=== PATIENT | female | born 1970 | race Caucasian/White ===

== ENCOUNTER → 2017-06-22 | Outpatient (CLI) | payer MEDICARE ==
--- NOTE | 2017-06-22 09:31 | US ---
EXAMINATION TYPE: US carotid duplex BILAT DATE OF EXAM: 06/22/2017 COMPARISON: NONE CLINICAL HISTORY: R42 dizziness, R94.31 abnormal EKG. Dizziness, imbalance EXAM MEASUREMENTS: RIGHT: Peak Systolic Velocity (PSV) cm/sec ----- Right CCA: 76.5 ----- Right ICA: 100.5 ----- Right ECA: 110.6 ICA/CCA ratio: 1.3 RIGHT: End Diastole cm/sec ----- Right CCA: 22.2 ----- Right ICA: 47.4 ----- Right ECA: 19.7 LEFT: Peak Systolic Velocity (PSV) cm/sec ----- Left CCA: 100.9 ----- Left ICA: 91.9 ----- Left ECA: 115.2 ICA/CCA ratio: 0.9 LEFT: End Diastole cm/sec ----- Left CCA: 29.7 ----- Left ICA: 42.6 ----- Left ECA: 18.0 VERTEBRALS (direction of flow): Right Vertebral: Antegrade Left Vertebral: Antegrade Rhythm: Normal Minimal plaque bilateral bifurcations. NO evidence of increased velocities. NO evidence of significan t stenosis IMPRESSION: 1. Minimal plaque bilaterally with no significant hemodynamic stenosis by carotid Doppler ultrasound. Criteria for Assigning % of Stenosis / Diameter reduction (Estimation based on the indirect measurements of the internal carotid artery velocities (ICA PSV). 1. Normal (no stenosis)=ICA PSV < 125 cm/s: ratio < 2.0: ICA EDV<40 cm/s. 2. Less than 50% stenosis=ICA PSV < 125 cm/s: ratio < 2.0: ICA EDV<40 cm/s. 3. 50 to 69% stenosis=ICA PSV of 125 to 230 cm/s: ration 2.0 ? 4.0: ICA EDV 40-100 cm/s. 4. Greater than 70% stenosis to near occlusion= ICA PSV > 230 cm/s: ratio > 4.0: ICA EDV > 100 cm/s. 5. Near occlusion= ICA PSV velocities may be low or undetectable: variable ratio and ICA EDV. 6. Total occlusion=unable to detect flow.
--- NOTE | 2017-06-22 09:55 | CT ---
EXAMINATION TYPE: CT brain wo con DATE OF EXAM: 06/22/2017 COMPARISON: NONE HISTORY: Dizziness, Abnormal EKG CT DLP: 1116.00 mGycm. Automated Exposure Control for Dose Reduction was Utilized. TECHNIQUE: CT scan of the head is performed without contrast. FINDINGS: There is no acute intracranial hemorrhage, mass effect, or midline shift identified. The ventricles and sulci are within normal limits in size. The globes are intact and the visualized sin uses are clear. IMPRESSION: No acute intracranial hemorrhage, mass effect, or midline shift is seen.
--- NOTE | 2017-06-22 11:50 | ECHOF ---
Referral Reason:R42 dizziness, R94.31 abnormal EKG MEASUREMENTS -------- HEIGHT: 172.7 cm WEIGHT: 127.0 kg BP: 109/57 IVSd: 1.0 cm (0.6 - 1.1) LVIDd: 5.0 cm (3.9 - 5.3) LVPWd: 1.2 cm (0.6 - 1.1) IVSs: 1.7 cm LVIDs: 2.9 cm LVPWs: 2.1 cm LAESV Index (A-L): 22.68 ml/m Ao Diam: 3.2 cm (2.0 - 3.7) AV Cusp: 2.4 cm (1.5 - 2.6) LA Diam: 2.5 cm (2.7 - 3.8) MV EXCURSION: 18.395 mm (> 18.000) MV EF SLOPE: 179 mm/s (70 - 150) EPSS: 0.5 cm MV E Raphael: 0.90 m/s MV DecT: 226 ms MV A Raphael: 0.63 m/s MV E/A Ratio: 1.41 RAP: 5.00 mmHg RVSP: 28.25 mmHg FINDINGS -------- Sinus rhythm. This was a technically good study. The left ventricular size is normal. Left ventricular wall thickness is normal. Overall left vent ricular systolic function is normal with, an EF between 55 - 60 %. The right ventricle is normal in size and function. The left atrium is normal in size. The right atrium is normal in size. The aortic valve is trileaflet, and appears structurally normal. No aortic stenosis or regurgitation. Mild mitral regurgitation is present. Trace tricuspid regurgitation present. The right ventricular systolic pressure, as measured by Dopp ler, is 28.25mmHg. Pulmonic valve appears structurally normal. The aortic root size is normal. Normal inferior vena cava with normal inspiratory collapse consistent with estimated right atrial pre ssure of 5 mmHg. The pericardium is normal. CONCLUSIONS -------- 1. Sinus rhythm. 2. This was a technically good study. 3. The left ventricular size is normal. 4. Left ventricular wall thickness is normal. 5. Overall left ventricular systolic function is normal with, an EF between 55 - 60 %. 6. The right ventricle is normal in size and function. 7. The left atrium is normal in size. 8. The right atrium is normal in size. 9. The aortic valve is trileaflet, and appears structurally normal. No aortic stenosis or regurgitati on. 10. Mild mitral regurgitation is present. 11. Trace tricuspid regurgitation present. 12. The right ventricular systolic pressure, as measured by Doppler, is 28.25mmHg. 13. Pulmonic valve appears structurally normal. 14. The aortic root size is normal. 15. Normal inferior vena cava with normal inspiratory collapse consistent with estimated right atrial pressure of 5 mmHg. 16. The pericardium is normal. TRACTOR DRIVER TEAMSTER: Gina Rob RDCS
== END | disposition home or self-care (01) ==
LOC: RADCTMAIN 08:37
PROVIDERS: ATTEND Family Medicine
DX: I65.23 Occlusion and stenosis of bilateral carotid arteries (principal); R42 Dizziness and giddiness; I08.1 Rheumatic disorders of both mitral and tricuspid valves
CPT/HCPCS: 70450; 93306; 93880

== ENCOUNTER → 2022-12-07 | Outpatient (CLI) | payer MEDICARE | END | disposition home or self-care (01) | LOC: LABPAT 15:20 | PROVIDERS: ATTEND Orthopaedic Surgery | DX: Z01.812 Encounter for preprocedural laboratory examination (principal); M17.12 Unilateral primary osteoarthritis, left knee; Z22.322 Carrier or suspected carrier of Methicillin resistant Staphylococcus aureus | CPT/HCPCS: 87070 ==

== ENCOUNTER 2023-01-11 13:22 | Inpatient (IN) | payer MEDICARE ==
[2023-01-06 13:19] VITALS: BMI 39.5
--- NOTE | 2023-01-10 13:49 | HP ---
HISTORY AND PHYSICAL DATE OF ANTICIPATED SURGERY: 01/11/2023. HISTORY OF PRESENT ILLNESS: Zeny Neal is a 52-year-old patient who was seen with progressive left knee pain. We discussed options for treatment. She elected to proceed with left total knee arthroplasty. Consents obtained. Medical clearance was provided by Dr. Jimmy Olson. PAST MEDICAL HISTORY: Noncontributory. SURGICAL HISTORY: Cholecystectomy, hysterectomy, knee arthroscopy. DAILY MEDICATIONS: 1. Abilify. 2. Diclofenac. 3. Gabapentin. ALLERGIES: None. SOCIAL HISTORY: She denies tobacco use. PHYSICAL EVALUATION OF LEFT KNEE: Range of motion is degrees. Tenderness medial joint line. Crepitus, medial patellofemoral compartments with range of motion. Pain with patellofemoral compression. Ligaments stable. Hip rotation is without pain. Distal neurovascular exam is intact. RADIOGRAPHS: Left knee radiographs reveal severe osteoarthritic changes. IMPRESSION: Left knee osteoarthritis. PLAN: Left total knee arthroplasty. MMODL / IJN: [id number] /
[~2023-01-11 13:22] MED LIST: ACETAMINOPHEN TAB 500 MG TAB PO PRN; DEXAMETHASONE SOD PHOSPHATE 4 MG/ML 1 ML VIAL IV ONE; LACTATED RINGERS 1,000 ML IV SCH; LIDOCAINE 1% (10MG/ML) FOR IV START INTRADERMA PRN; MELOXICAM 7.5 MG TAB PO PRN; ONDANSETRON 4 MG/2 ML VIAL IVP PRN; TRANEXAMIC 1,000 MG/100ML-NACL 1,000 MG in SALINE 1 100ML.BAG IVPB PRN; droPERidol 5 MG/2 ML VIAL IVP ONE
[2023-01-11] MEDS ORDERED: MIDAZOLAM 2 MG/2 ML VIAL IVP ONE (14:04)
[2023-01-11] MEDS ORDERED: DEXAMETHASONE SOD PHOSPHATE 4 MG/ML 1 ML VIAL ONE (14:16)
[2023-01-11] MEDS ORDERED: MIDAZOLAM 2 MG/2 ML VIAL ONE (14:16)
[2023-01-11] MEDS ORDERED: PROPOFOL 10 MG/ML 20 ML VIAL IV ONE (14:16)
[2023-01-11] MEDS ORDERED: fentaNYL (PF) 50 MCG/ML 2 ML AMP ONE (14:16)
[2023-01-11] MEDS ORDERED: ROPIVACAINE 5 MG/ML 30 ML VIAL ONE (14:16)
[2023-01-11] MEDS ORDERED: ceFAZolin 1,000 MG in SODIUM CHLORIDE 0.9% 1,000 ML IRRIGATION ONE (14:46)
[2023-01-11] MEDS ORDERED: NALOXONE 0.4 MG/ML 1 ML VIAL IV PRN (16:11)
[2023-01-11] MEDS ORDERED: HYDROcodone/APAP 5-325MG 1 EACH TAB PO PRN (16:11)
[2023-01-11] MEDS ORDERED: ONDANSETRON 4 MG/2 ML VIAL IVP PRN (16:11)
[2023-01-11] MEDS ORDERED: HYDROmorphone 0.5 MG/0.5 ML SYRINGE IVP PRN ×2 (16:11)
--- NOTE | 2023-01-11 16:11 | P.OP ---
Date of Procedure: 01/11/23 Preoperative Diagnosis: Left knee osteoarthritis Postoperative Diagnosis: Left knee osteoarthritis Procedure(s) Performed: Left total knee arthroplasty Implants: 1. Depuy attune posterior stabilized size 4 left cemented femur 2. Depuy attune size 4 fixed bearing cemented tibial baseplate 3. Depuy attune size 4 fixed bearing posterior stabilized 18 mm polyethylene tibial insert 4. Depuy attune 32 mm all polyethylene cemented patella Anesthesia: regional (Adductor canal catheter, Ipack block), spinal Surgeon: Huey Mcduffie Meat Grinder #1: Robert Pierson Estimated Blood Loss (ml): 45 Pathology: none sent Condition: stable Disposition: PACU Indications for Procedure: 52 year-old patient seen with symptomatic left knee osteoarthritis. After treatment options were discussed, she elected to proceed with total knee arthroplasty. Operative Findings: See description of procedure Description of Procedure: Patient was taken to the operative suite after having an adductor canal catheter placed by the department of anesthesia. Patient underwent a spinal anesthetic by the department of anesthesia. Patient was given preoperative IV intake antibiotics and TXA. A well-padded tourniquet was placed about the left lower extremity. The lower extremity was then prepped and draped in the normal sterile orthopedic fashion. The extremity was elevated, a tourniquet was insufflated to 300. A standard anterior incision was made sharply through skin. Dissection was taken down through the subcutaneous soft tissues down to the extensor mechanism. A medial arthrotomy was performed, patella was everted and knee was flexed. There was advanced osteoarthritis noted. I introduced my distal intramedullary femoral drill. I then introduced the distal femoral cutting jig. Yovany HYDE secured the cutting jig with 2 pins. I held retractors in position while Yovany HYDE performed the distal femoral resection through the guide area we now removed her distal femoral cutting guide. We now placed our 4-in-1 femoral cutting block and positioned and it was secured with 2 pins by Yovany HYDE while I held the block in position. The distal femoral finishing was now completed. A proximal tibial cutting guide was positioned. I held the guide in the appropriate position with both hands well Yovany HYDE inserted stabilizing pins into the guide. Proximal tibial cut was made. We now placed a trial femoral component into position, along with an appropriate size tibial tray and insert. We now took the knee through range of motion and had hyperextension. Even with our minimal tibial cut we went all way to a size 16 polyethylene and we still noted some hyperextension. We now decided to proceed with a posterior stabilized knee. The notch cutting device was placed in position appropriate cut was made for a posterior stabilized knee. I now placed a trial for a posterior stabilized femur position. We now trialed a 18 mm posterior stabilized polyethylene insert and noted excellent stability at this point. The patella was everted and stabilized with 2 towel clips held by Yovany HYDE while I performed a flush with patellar quad tendon utilizing a fresh sawblade. We templated the patella, appropriate drill holes were made. An appropriate trial patella was positioned, knee was taken through full range of motion with the patella tracking very nicely. The trial patella was removed. Drill holes were made through the femoral component. All trial components were removed after marking off the appropriate rotation of the tibia. Retractors were now positioned along the proximal tibia. An appropriate keel punch was made with the appropriate size tibial guide by myself on Yovany HYDE assisted by holding retractors. At this point appropriate size implants were chosen and opened. The joint was irrigated copiously with pulse lavage mechanical irrigation. The wound was irrigated with pulse lavage mechanical irrigation. We mixed antibiotic methylmethacrylate. We placed the knee into flexion. We placed multiple retractors assisted by Yovany HYDE to expose the proximal tibia. Once the methyl methacrylate was ready, the tibial component was cemented into place removing any excess methylmethacrylate form by both myself and Yovany HYDE. The femoral component was cemented into place removing the removing any excess methylmethacrylate performed by both myself and Yovany HYDE. We then inserted the appropriate size polyethylene tibial insert. We made sure that it was locked into position. We took the knee into full extension, and then back in a flexion making sure we had removed any excess methylmethacrylate. The patellar component was then cemented down and secured with clamp. Excess methylmethacrylate removed. We kept the knee in full extension, patellar clamp in position until methylmethacrylate had hardened. Once it had hardened the patellar clamp was removed. The knee was taken through full range of motion. The patella tracked nicely. There was good soft tissue balancing. The tourniquet was now released. Additional hemostasis was achieved via electrocautery. A second gram of TXA was given. The wound again was irrigated with pulse lavage mechanical irrigation. The extensor mechanism was repaired with Ethibond suture. We checked the repair with range of motion and it was stable. The subcutaneous soft tissues were repaired with Vicryl in layers. The skin was approximated with pernio/Dermabond. Sterile dressings were applied followed by loose web roll and Zohaib bandage. The patient was transferred to a bed, and taken to recovery in stable and satisfactory condition. Yovany HYDE assisted with this complex procedure.
[2023-01-11] MEDS ORDERED: ROPIVACAINE 1,100 MG, SODIUM CHLORIDE 0.9% 500 ML 330 ML, EMPTY PAIN BALL 1 EACH MISCELLANE PRN ×2 (17:09)
[2023-01-11] MEDS: HYDROmorphone 0.5 MG/0.5 ML SYRINGE IVP PRN ×2 (17:15→17:21)
[2023-01-11] MEDS: LACTATED RINGERS 1,000 ML IV SCH ×2 (17:19→18:43)
--- NOTE | 2023-01-11 17:47 | XR ---
EXAMINATION TYPE: XR knee limited LT DATE OF EXAM: 01/11/2023 5:25 PM CLINICAL INDICATION:Female, 52 years old with history of Evaluation for Postop abnormality and alignm ent; H COMPARISON: 12/04/2022.. TECHNIQUE: XR knee limited LT; examined in Frontal, lateral projections. FINDINGS: Status post total knee arthroplasty changes with hardware in appropriate alignment and in tact. No evidence of fracture. Subcutaneous lucencies and lucencies within the joint consistent with surgical changes. IMPRESSION: Status post total knee arthroplasty changes with hardware intact and appropriate alignment. No fractu res identified.
[2023-01-11] MEDS: HYDROcodone/APAP 7.5-325MG 1 EACH TAB PO PRN (18:27)
[2023-01-11] MEDS: HYDROmorphone 1 MG/ML 1 ML SYRINGE IVP PRN ×2 (20:05→22:57)
[2023-01-11] MEDS: SENNOSIDES-DOCUSATE SODIUM 1 EACH TAB PO SCH (20:05)
--- NOTE | 2023-01-11 20:26 | P.ANPRN ---
Procedure Note - Anesthesia - Nerve Block Performed Left Adductor Canal Infusion Time Out Performed: Yes Date of Procedure: 01/11/23 Procedure Start Time: 13:59 Procedure Stop Time: 14:10 Location of Patient: PreOp Indication: Acute Post-Operative Pain, Requested by Surgeon Sedation Type: Sedate with meaningful contact maintained Preparation: Sterile Prep, Sterile Dressing Position: Supine Catheter: Indwelling Needle Types: Pajunk Needle Gauge: 21 Ultrasound used to visualize needle placement: Yes Ultrasound used to observe medication spread: Yes Blood Aspirated: No Pain Paresthesia on Injection Noted: No Resistance on Injection: Normal Image Stored and Saved: Yes Events: Uneventful and Well Tolerated (Ropivacaine 0.5% 20 mL plus dexamethasone 4 mg)
--- NOTE | 2023-01-11 20:28 | P.ANPRN ---
Procedure Note - Anesthesia - Nerve Block Performed Left iPack Single Time Out Performed: Yes Date of Procedure: 01/11/23 Procedure Start Time: 14:11 Procedure Stop Time: 14:13 Location of Patient: PreOp Indication: Acute Post-Operative Pain, Requested by Surgeon Sedation Type: Sedate with meaningful contact maintained Preparation: Sterile Prep Position: Supine Needle Types: Pajunk Needle Gauge: 21 Ultrasound used to visualize needle placement: Yes Ultrasound used to observe medication spread: Yes Blood Aspirated: No Pain Paresthesia on Injection Noted: No Resistance on Injection: Normal Image Stored and Saved: Yes Events: Uneventful and Well Tolerated (Ropivacaine 0.5% 20 mL plus dexamethasone 4 mg)
[2023-01-11] MEDS ORDERED: traMADol 50 MG TAB PO PRN (22:34)
[2023-01-11] MEDS: ceFAZolin 3 GM in SODIUM CHLORIDE 0.9% 100 ML IVPB SCH (22:57)
[2023-01-12] MEDS: ETODOLAC 400 MG TAB PO SCH ×3 (00:20→20:29)
[2023-01-12] MEDS: busPIRone HCl 5 MG TAB PO SCH ×2 (00:21→20:29)
[2023-01-12] MEDS: diphenhydrAMINE 25 MG CAP PO SCH ×2 (00:21→20:29)
[2023-01-12] MEDS: GABAPENTIN 400 MG CAP PO SCH ×4 (00:21→20:29)
[2023-01-12] MEDS: QUEtiapine 25 MG TAB PO SCH ×5 (00:21→20:29)
[2023-01-12] MEDS: HYDROcodone/APAP 7.5-325MG 1 EACH TAB PO PRN ×5 (00:25→23:09)
[2023-01-12] MEDS: HYDROmorphone 1 MG/ML 1 ML SYRINGE IVP PRN ×4 (03:05→15:47)
[2023-01-12] MEDS: ceFAZolin 3 GM in SODIUM CHLORIDE 0.9% 100 ML IVPB SCH (07:05)
--- NOTE | 2023-01-12 07:07 | P.PN ---
Progress Note - Text 01/12/23 633am 60-year-old female status post total knee replacement by Dr. Mcduffie. Patient has an On-Q pump for postop pain control with the solution running at 8 mL an hour, patient has a VAS of 5. Pain is predominantly located in the thigh and posteriorly. Dressing clean dry and intact plan to continue On-Q pump infusion
[2023-01-12] MEDS: POTASSIUM CHLORIDE ER 20 MEQ TAB.ER PO SCH (08:14)
[2023-01-12] MEDS: MULTIVITAMINS, THERA 1 EACH TAB PO SCH (08:14)
[2023-01-12] MEDS: MAGNESIUM OXIDE 400 MG TAB PO SCH (08:15)
[2023-01-12] MEDS: ENOXAPARIN 30 MG/0.3 ML SYRINGE SQ SCH ×2 (08:15→20:30)
[2023-01-12] MEDS: BENZTROPINE MESYLATE 1 MG TAB PO SCH (08:16)
[2023-01-12] MEDS: NON FORMULARY DRUG (Vilazodone Hcl [Viibryd] 40 MG Tablet) PO SCH (08:17)
[2023-01-12] MEDS ORDERED: NON FORMULARY DRUG (Biotin [Hair-Skin-Nails] 10,000 MCG Tab.Chew) PO SCH (09:00)
--- NOTE | 2023-01-12 10:56 | P.PN ---
Subjective Progress Note Date: 01/12/23 Principal diagnosis: status post left total knee arthroplasty Patient was evaluated at bedside, she is resting in her hospital bed. Patient is struggling a little bit pain control, she was unable to do stairs with therapy today. She denies any lightheadedness, chest pain or shortness of breath. She's been urinating with no difficulties. Objective - Vital Signs Vital signs: Vital Signs Temp 99.1 F 01/12/23 07:03 Pulse 84 01/12/23 07:03 Resp 14 01/12/23 07:03 BP 136/84 01/12/23 07:03 Pulse Ox 94 L 01/12/23 07:03 FiO2 Intake & Output 01/11/23 01/12/23 01/12/23 18:59 06:59 18:59 Intake Total 1631 Output Total 45 Balance 1586 Weight 121.2 kg Intake: IV 1151 Oral 480 Output: Estimated Blood Loss 45 Other: # Voids 0 4 - Exam Left lower extremity: Incision is clean, dry, and intact. The foam dressing is in good condition. There is minimal soft tissue swelling and ecchymosis surrounding the medial and lateral aspects of the incision. Calf is soft, no tenderness with palpation. Plantar flexion, dorsiflexion, EHL, FHL are intact. Sensory exam to light touch throughout the extremity is intact, dorsal pedis pulses 2+. Assessment and Plan Assessment: Status post left total knee arthroplasty Plan: Pain control, continue with [place] 7.5 mg/325 mg, Dilaudid for breakthrough pain DVT prophylaxis, continue subcu medication during hospital stay Icing and elevating techniques were discussed Continue therapy, weight-bear as tolerated with walker Medical recommendations Current incentive spirometer Discharge planning: Hopeful discharge home with home health care 01/13/2023 Time with Patient: Less than 30
[2023-01-12] MEDS: LACTATED RINGERS 1,000 ML IV SCH ×2 (11:36→20:30)
--- NOTE | 2023-01-12 14:33 | P.CONS ---
History of Present Illness - Reason for Consult Consult date: 01/12/23 Medical management Requesting physician: Huey Mcduffie - Chief Complaint Left knee Osteoarthritis status post total arthroplasty - History of Present Illness This is a 52-year-old female status post left total knee arthroplasty secondary to left knee osteoarthritis in a patient with past medical history significant for fibromyalgia, osteoarthritis, Bo-en-Y, morbid obesity, multiple joint surgeries, anxiety, depression, marijuana use and multiple other medical issues. Postop day #1. Has not yet ambulated, complains of pain in a patient with history of chronic pain syndrome. Denies chest pain, palpitations or shortness of breath. Past Medical History Past Medical History: Fibromyalgia, Osteoarthritis (OA) History of Any Multi-Drug Resistant Organisms: None Reported Past Surgical History: Bariatric Surgery, Cholecystectomy, Hysterectomy, Joint Replacement, Orthopedic Surgery Additional Past Surgical History / Comment(s): Right knee surgery X2, right knee replacement, surgery X3 after gallbladder surgery to "fix stuff", including surgery to remove scar tissue over common bile duct and liver/intestinal surgery, Bo En Y, left TKR Past Anesthesia/Blood Transfusion Reactions: No Reported Reaction Past Psychological History: Anxiety, Depression Smoking Status: Never smoker Past Alcohol Use History: None Reported Past Drug Use History: Marijuana Additional Drug Use History / Comment(s): Hx Marijuana use, no use in 3-4 months. - Past Family History Mother Family Medical History: No Reported History Medications and Allergies Home Medications Medication Instructions Recorded Confirmed Type ARIPiprazole [Abilify] 20 mg PO QAM 01/06/23 01/06/23 History Benztropine Mesylate [Cogentin] 1 mg PO DAILY 01/06/23 01/06/23 History Biotin [Krcq-Vcgo-Kvoxd] 10,000 mcg PO DAILY 01/06/23 01/06/23 History Diclofenac Sodium [Voltaren] 75 mg PO BID 01/06/23 01/06/23 History Ergocalciferol [Vitamin D2 (1250 1,250 mcg PO TH 01/06/23 01/06/23 History Mcg = 40232 Iu)] Gabapentin 800 mg PO TID 01/06/23 01/06/23 History Magnesium 250 mg PO DAILY 01/06/23 01/06/23 History Multivitamins, Thera [Multivitamin 1 tab PO DAILY 01/06/23 01/06/23 History (formulary)] Potassium Chloride [K-Tab ER] 20 meq PO DAILY 01/06/23 01/06/23 History QUEtiapine FUMARATE [SEROquel] 75 mg PO HS 01/06/23 01/06/23 History QUEtiapine XR [SEROquel XR] 150 mg PO HS 01/06/23 01/06/23 History Turmeric Root Extract [Turmeric] 1,000 mg PO DAILY 01/06/23 01/06/23 History Vilazodone HCl [Viibryd] 40 mg PO QAM 01/06/23 01/06/23 History busPIRone HCl [Buspar] 5 mg PO HS 01/06/23 01/06/23 History diphenhydrAMINE HCL [Benadryl 75 mg PO HS 01/06/23 01/06/23 History Allergy] traMADol HCL 50 mg PO DAILY PRN 01/06/23 01/06/23 History Allergies Allergy/AdvReac Type Severity Reaction Status Date / Time No Known Allergies Allergy Verified 01/11/23 13:36 Physical Exam Vitals: Vital Signs Temp Pulse Pulse Resp BP Pulse Ox 01/12/23 07:03 99.1 F 84 14 136/84 94 L 01/12/23 02:00 99.4 F 76 18 164/91 94 L 01/11/23 20:00 98.5 F 77 18 147/89 94 L 01/11/23 17:32 67 16 126/77 94 L 01/11/23 17:17 70 16 131/58 96 01/11/23 17:02 67 14 125/51 97 01/11/23 16:47 61 14 103/66 96 01/11/23 16:32 70 14 108/52 97 Intake and Output 01/11/23 01/12/23 01/12/23 22:59 06:59 14:59 Intake Total 880 Output Total 45 Balance 835 Intake: IV 400 Oral 480 Output: Estimated Blood Loss 45 Other: # Voids 0 4 Weight 121.2 kg PHYSICAL EXAM: VITAL SIGNS: As above GENERAL: Sitting up in bed, no acute distress HEENT: Conjunctivae normal. eyes normal. mmm. NECK: Supple, No JVD. No thyroid enlargement. No LNs CARDIOVASCULAR: S1, S2 regular. No murmur RESPIRATION: Unlabored, Breath sounds diminished in the bases. No rhonchi or crackles. No bronchial breathing. ABDOMEN: Soft, nontender . No guarding. no masses palpable. No ascites, No hepatosplenomegaly.Bowel sounds heard. LEGS: Left lower extremity dressing clean dry and intact, minimal ecchymosis, minimal edema. No calf tenderness. Positive DP pulse PSYCHIATRY: Alert and oriented X3, mood and affect normal. NERVOUS SYSTEM: Cranial N 2-12 grossly normal. Moves all 4 limbs. No focal de ficits. Strength and sensation grossly intact.. Skin: Warm and dry, no rash Assessment and Plan Assessment: Osteoarthritis left knee status post total arthroplasty Morbid obesity, BMI 41 Multiple joint surgeries Fibromyalgia Anxiety Depression Marijuana use Plan: Continue on current medication regime ,monitoring and symptomatic treatment. Aggressive pulmonary toileting with incentive spirometer reinforce. PT pending. Pain management/DVT prophylaxis as per primary. Discharge planning in progress for tomorrow. Follow-up with PCP in one week .Thank you for the consult. The impression and plan of care has been dictated as directed. : I performed a history and examination of this patient, discussed the same with the dictator. I agree with the dictator's note ,documented as a scribe. Any additional findings or plans will be noted.
[2023-01-12] MEDS: hydrOXYzine pamoate 25 MG CAP PO PRN ×2 (17:36→23:12)
[2023-01-12] MEDS: SENNOSIDES-DOCUSATE SODIUM 1 EACH TAB PO SCH (20:29)
[2023-01-13] MEDS: HYDROcodone/APAP 7.5-325MG 1 EACH TAB PO PRN (05:22)
[2023-01-13] MEDS: hydrOXYzine pamoate 25 MG CAP PO PRN ×3 (05:22→18:32)
[2023-01-13] MEDS: NON FORMULARY DRUG (Vilazodone Hcl [Viibryd] 40 MG Tablet) PO SCH (07:26)
[2023-01-13] MEDS: ENOXAPARIN 30 MG/0.3 ML SYRINGE SQ SCH ×2 (07:46→20:05)
[2023-01-13] MEDS: GABAPENTIN 400 MG CAP PO SCH ×3 (07:47→20:05)
[2023-01-13] MEDS: BENZTROPINE MESYLATE 1 MG TAB PO SCH (07:47)
[2023-01-13] MEDS: ETODOLAC 400 MG TAB PO SCH ×2 (07:47→20:04)
[2023-01-13] MEDS: MULTIVITAMINS, THERA 1 EACH TAB PO SCH (07:47)
[2023-01-13] MEDS: MAGNESIUM OXIDE 400 MG TAB PO SCH (07:47)
[2023-01-13] MEDS: POTASSIUM CHLORIDE ER 20 MEQ TAB.ER PO SCH (07:48)
[2023-01-13] MEDS: QUEtiapine 25 MG TAB PO SCH ×3 (07:48→20:04)
--- NOTE | 2023-01-13 10:08 | P.PN ---
Subjective Progress Note Date: 01/13/23 Principal diagnosis: status post left total knee arthroplasty Patient was evaluated at bedside, she is resting in her hospital chair. Patient continues to have a lot of discomfort when ambulating oral medications were adjusted to 2 [place] 7.5 mg every 6 hours as needed. Patient is very nervous about discharge options, internal medicine to discuss possibility of rehab with her. She denies any lightheadedness, chest pain or shortness of breath. Objective - Vital Signs Vital signs: Vital Signs Temp 98.0 F 01/13/23 07:12 Pulse 82 01/13/23 07:12 Resp 18 01/13/23 07:12 BP 143/82 01/13/23 07:12 Pulse Ox 97 01/13/23 07:12 FiO2 Intake & Output 01/12/23 01/13/23 01/13/23 18:59 06:59 18:59 Intake Total 500 Balance 500 Intake: Oral 500 Other: Voiding Method Toilet # Voids 2 2 - Exam Left lower extremity: Incision is clean, dry, and intact. The foam dressing is in good condition. There is minimal soft tissue swelling and ecchymosis surrounding the medial and lateral aspects of the incision. Calf is soft, no tenderness with palpation. Plantar flexion, dorsiflexion, EHL, FHL are intact. Sensory exam to light touch throughout the extremity is intact, dorsal pedis pulses 2+. Assessment and Plan Assessment: Postoperative day #2 status post left total knee arthroplasty Plan: Pain control, will adjust [place] 10 mg 1 tab every 4 hours as needed. Continue with both tramadol and gabapentin DVT prophylaxis, continue subcu medication during hospital stay Icing and elevating techniques were discussed Continue therapy, weight-bear as tolerated with walker Medical recommendations Current incentive spirometer Discharge planning: Hopeful discharge to home with home health care 01/14/2023 Time with Patient: Less than 30
[2023-01-13] MEDS: HYDROcodone/APAP 10-325MG 1 EACH TAB PO PRN ×3 (10:30→18:32)
--- NOTE | 2023-01-13 13:51 | P.PN ---
Subjective Progress Note Date: 01/13/23 Consult date: 01/12/23 Medical management Requesting physician: Huey Mcduffie - Chief Complaint Left knee Osteoarthritis status post total arthroplasty - History of Present Illness This is a 52-year-old female status post left total knee arthroplasty secondary to left knee osteoarthritis in a patient with past medical history significant for fibromyalgia, osteoarthritis, Bo-en-Y, morbid obesity, multiple joint surgeries, anxiety, depression, marijuana use and multiple other medical issues. Postop day #1. Has not yet ambulated, complains of pain in a patient with history of chronic pain syndrome. Denies chest pain, palpitations or shortness of breath. 01/13/2023 reports she continues to have significant surgical discomfort, unable to ambulate far, was unable to complete stairs.Denies lightheadedness dizziness or focal deficits. Denies chest pain, palpitations or shortness of breath. Denies cough, congestion. Denies sweats or chills. Maintaining O2 sats in the high 90s on room air. T-max 99.1. Objective - Vital Signs Vital signs: Vital Signs Temp 98.0 F 01/13/23 07:12 Pulse 82 01/13/23 09:00 Resp 18 01/13/23 09:00 BP 143/82 01/13/23 07:12 Pulse Ox 97 01/13/23 07:12 FiO2 Intake & Output 01/12/23 01/13/23 01/13/23 18:59 06:59 18:59 Intake Total 500 Balance 500 Intake: Oral 500 Other: Voiding Method Toilet Toilet # Voids 2 2 - Exam PHYSICAL EXAM: VITAL SIGNS: As above GENERAL: Sitting up in bed, no acute distress, teary-eyed HEENT: Normocephalic. Conjunctivae normal. eyes normal. mmm. NECK: Supple, No JVD. CARDIOVASCULAR: S1, S2 regular. No murmur RESPIRATION: Unlabored, equal air entry, Breath sounds diminished in the bases. ABDOMEN: Soft, obese, nontender . No guarding. +Bowel sounds. LEGS: Left lower extremity dressing clean dry and intact, minimal ecchymosis, minimal edema. No calf tenderness. Positive DP pulse PSYCHIATRY: Alert and oriented X3, mood and affect normal. NERVOUS SYSTEM: Cranial N 2-12 grossly normal. Moves all 4 limbs. No focal deficits. Strength and sensation grossly intact. Skin: Warm and dry, no rash Assessment and Plan Assessment: Osteoarthritis left knee status post total arthroplasty Morbid obesity, BMI 41 Multiple joint surgeries Fibromyalgia Anxiety Depression Marijuana use Plan: Continue on current medication regime ,monitoring and symptomatic treatment. Pain management. Discussed possibility of subacute rehab. dependent upon PT eval. Maintain aggressive pulmonary toileting with incentive spirometer reinforced.Discharge planning in progress for tomorrow. Follow-up with PCP in one week . The impression and plan of care has been dictated as directed. : I performed a history and examination of this patient, discussed the same with the dictator. I agree with the dictator's note ,documented as a scribe. Any additional findings or plans will be noted.
[2023-01-13] MEDS: LACTATED RINGERS 1,000 ML IV SCH (19:17)
[2023-01-13] MEDS: busPIRone HCl 5 MG TAB PO SCH (20:04)
[2023-01-13] MEDS: SENNOSIDES-DOCUSATE SODIUM 1 EACH TAB PO SCH (20:05)
[2023-01-13] MEDS: diphenhydrAMINE 25 MG CAP PO SCH (20:05)
[2023-01-14] MEDS: HYDROcodone/APAP 10-325MG 1 EACH TAB PO PRN ×3 (00:51→10:54)
[2023-01-14] MEDS: hydrOXYzine pamoate 25 MG CAP PO PRN ×2 (00:52→10:55)
[2023-01-14 01:23] VITALS: TEMP 98.8
[2023-01-14] MEDS: LACTATED RINGERS 1,000 ML IV SCH (01:46)
[2023-01-14] MEDS: ENOXAPARIN 30 MG/0.3 ML SYRINGE SQ SCH (07:21)
[2023-01-14] MEDS: POTASSIUM CHLORIDE ER 20 MEQ TAB.ER PO SCH (07:22)
[2023-01-14] MEDS: MAGNESIUM OXIDE 400 MG TAB PO SCH (07:22)
[2023-01-14] MEDS: MULTIVITAMINS, THERA 1 EACH TAB PO SCH (07:22)
[2023-01-14] MEDS: GABAPENTIN 400 MG CAP PO SCH (07:22)
[2023-01-14] MEDS: QUEtiapine 25 MG TAB PO SCH (07:23)
[2023-01-14] MEDS: BENZTROPINE MESYLATE 1 MG TAB PO SCH (07:23)
[2023-01-14] MEDS: ETODOLAC 400 MG TAB PO SCH (07:24)
[2023-01-14] MEDS: NON FORMULARY DRUG (Vilazodone Hcl [Viibryd] 40 MG Tablet) PO SCH (07:25)
[2023-01-14 07:53] VITALS: BP 136/91; PULSE 90; RESP 21
[2023-01-14] MEDS ORDERED: ERGOCALCIFEROL 1,250 MCG (50,000 IU) CAPSULE PO SCH (09:00)
--- NOTE | 2023-01-14 09:39 | P.PN ---
Subjective Progress Note Date: 01/14/23 Principal diagnosis: status post left total knee arthroplasty Patient was evaluated at bedside, she is resting in her hospital bed . Patient notes improvement in overall pain since increasing Hudson. She denies any lightheadedness, chest pain or shortness of breath. Objective - Vital Signs Vital signs: Vital Signs Temp 98.8 F 01/14/23 07:15 Pulse 90 01/14/23 08:00 Resp 21 01/14/23 08:00 BP 136/91 01/14/23 07:15 Pulse Ox 99 01/14/23 07:15 FiO2 Intake & Output 01/13/23 01/14/23 01/14/23 18:59 06:59 18:59 Other: Voiding Method Toilet Toilet # Voids 4 3 - Exam Left lower extremity: Incision is clean, dry, and intact. The foam dressing is in good condition. There is minimal soft tissue swelling and ecchymosis surrounding the medial and lateral aspects of the incision. Calf is soft, no tenderness with palpation. Plantar flexion, dorsiflexion, EHL, FHL are intact. Sensory exam to light touch throughout the extremity is intact, dorsal pedis pulses 2+. Assessment and Plan Assessment: Postoperative day #3 status post left total knee arthroplasty Plan: Pain control, plan for discharge on Hudson 10 mg/25 mg DVT prophylaxis, aspirin 81 mg twice a day for 30 days Icing and elevating techniques were discussed Home physical therapy/nursing after discharge Medical recommendations Current incentive spirometer Discharge planning: stable for discharge home today Time with Patient: Less than 30
--- NOTE | 2023-01-14 09:45 | P.DS ---
Providers Date of admission: 01/13/23 10:08 Expected date of discharge: 01/14/23 Attending physician: Huey Mcduffie Consults: 01/11/23 16:11 Consult Physician Routine Consulting Provider: Jimmy Olson Consult Reason/Comments: Medical management Do you want consulting provider notified?: Yes Primary care physician: Jimmy Olson MD Hospital Course: Date of admission: 01/11/2023 Date of discharge: 01/14/2023 Admission diagnosis: Status post left total knee arthroplasty Discharge diagnosis: Same Attending physician: Dr. Mcduffie Surgical procedures: Left total knee arthroplasty Brief history: Patient is a 52-year-old female with a history of progressive primary left knee osteoarthritis. At this point patient has failed conservative treatment measures and has opted to proceed with a elective left total knee arthroplasty. Hospital course: Details of patient's surgery can be found in operative report. Patient tolerated the procedure well and was subsequently transported to orthopedic floor. Patient's orthopeidc and medical care was provided daily. Patient had daily laboratory tests performed for evaluation of overall blood counts. Patient had daily physical therapy to include strengthening range of motion as well as education with walker ambulation. Patient was treated with Lovenox for their postoperative DVT prophylaxis during their inpatient stay. Patient was noted to have a relatively uneventful postoperative course. Patient reported satisfactory pain control with oral pain medications by postoperative day 3. Patient showed satisfactory progress with physical therapy. Patient moved steadily through the program and had no difficulty meeting the goals by postoperative day 3. Given patient's otherwise satisfactory course and having met physical therapy goals, plan is to discharge patient home on postoperative day 3. Discharge condition/disposition: Patient will be discharged home in stable condition. Discharge medications: Instructions are given on resumption of patient's normal daily medications per primary care recommendation, in addition patient will be prescribed [place] 10 mg/325 mg, aspirin 81 mg, Senokot-S. Discharge instructions: 1. Wound care and infection precautions, keep incision dry and covered while showering, no lotions, creams, moisturizers. No soaking, tubs, pools, hottubs. Do not scrub over the incision. 2. Weight-bear as tolerated with walker / cane until follow-up. 3. Ice and elevate when necessary. Do not exceed 20 minutes per hour with ice pack. 4. Utilize compression sleeve until seen at first follow up appointment. 5. Visiting nursing care. 6. Home physical therapy including home CPM. 7. Pain meds and anticoagulants per prescription. 8. Pain medication has potential to cause constipation. Increase oral fluid and fiber intake. Contact primary care provider if you have not had a bowel movement within 48 hours after discharge 9. No anti-inflammatory medication until discussed at first post operative visit, this including Motrin, Aleve, Mobic, Diclofenac 10. Follow up in office at 2 weeks postop with Yovany Pierson PA-C/Camilo Barrow 11. Follow up with your primary care doctor 7-10 days after discharge. 12. Contact [facility] with any questions, . Procedures: Left total knee arthroplasty Patient Condition at Discharge: Good Plan - Discharge Summary Discharge Rx Participant: Yes New Discharge Prescriptions: New HYDROcodone/APAP 10-325MG [[place] 10-325] 1 tab PO Q4HR PRN 7 Days #42 tab PRN Reason: Pain Aspirin [Adult Low Dose Aspirin EC] 81 mg PO BID #60 tab Sennosides/Docusate Sodium [Senna-S 8.6-50 mg Tablet] 2 each PO DAILY PRN #30 tablet PRN Reason: Constipation No Action Multivitamins, Thera [Multivitamin (formulary)] 1 tab PO DAILY busPIRone HCl [Buspar] 5 mg PO HS Ergocalciferol [Vitamin D2 (1250 Mcg = 87774 Iu)] 1,250 mcg PO TH QUEtiapine FUMARATE [SEROquel] 75 mg PO HS Biotin [Ojhp-Gabw-Spcwd] 10,000 mcg PO DAILY QUEtiapine XR [SEROquel XR] 150 mg PO HS Vilazodone HCl [Viibryd] 40 mg PO QAM Gabapentin 800 mg PO TID Diclofenac Sodium [Voltaren] 75 mg PO BID ARIPiprazole [Abilify] 20 mg PO QAM Benztropine Mesylate [Cogentin] 1 mg PO DAILY diphenhydrAMINE HCL [Benadryl Allergy] 75 mg PO HS Turmeric Root Extract [Turmeric] 1,000 mg PO DAILY Potassium Chloride [K-Tab ER] 20 meq PO DAILY Magnesium 250 mg PO DAILY traMADol HCL 50 mg PO DAILY PRN PRN Reason: Pain Discharge Medication List ARIPiprazole [Abilify] 20 mg PO QAM 01/06/23 [History] Benztropine Mesylate [Cogentin] 1 mg PO DAILY 01/06/23 [History] Biotin [Orbo-Oovn-Yvgis] 10,000 mcg PO DAILY 01/06/23 [History] Diclofenac Sodium [Voltaren] 75 mg PO BID 01/06/23 [History] Ergocalciferol [Vitamin D2 (1250 Mcg = 97388 Iu)] 1,250 mcg PO TH 01/06/23 [History] Gabapentin 800 mg PO TID 01/06/23 [History] Magnesium 250 mg PO DAILY 01/06/23 [History] Multivitamins, Thera [Multivitamin (formulary)] 1 tab PO DAILY 01/06/23 [H istory] Potassium Chloride [K-Tab ER] 20 meq PO DAILY 01/06/23 [History] QUEtiapine FUMARATE [SEROquel] 75 mg PO HS 01/06/23 [History] QUEtiapine XR [SEROquel XR] 150 mg PO HS 01/06/23 [History] Turmeric Root Extract [Turmeric] 1,000 mg PO DAILY 01/06/23 [History] Vilazodone HCl [Viibryd] 40 mg PO QAM 01/06/23 [History] busPIRone HCl [Buspar] 5 mg PO HS 01/06/23 [History] diphenhydrAMINE HCL [Benadryl Allergy] 75 mg PO HS 01/06/23 [History] traMADol HCL 50 mg PO DAILY PRN 01/06/23 [History] Aspirin [Adult Low Dose Aspirin EC] 81 mg PO BID #60 tab 01/14/23 [Rx] HYDROcodone/APAP 10-325MG [[place] 10-325] 1 tab PO Q4HR PRN 7 Days #42 tab 01/14/23 [Rx] Sennosides/Docusate Sodium [Senna-S 8.6-50 mg Tablet] 2 each PO DAILY PRN #30 tablet 01/14/23 [Rx] Follow up Appointment(s)/Referral(s): Jimmy Olson MD [Primary Care Provider] - 1 Week [facility],Equipment [NON-STAFF] - As Needed (Please call [facility] to arrange delivery of the Continous Passive Motion (CPM) machine. ) [facility] Visiting Nurse, [NON-STAFF] - 1-2 Days ([facility] will call you to schedule your in home physical therapy and nursing visits. ) Robert Pierson, PAC [PHYSICIAN FERTILIZER MIXER] - 2 Weeks Activity/Diet/Wound Care/Special Instructions: Orthopedic Discharge Instructions: 1. Wound care and infection precautions, keep incision dry and covered while showering, no lotions, creams, moisturizers. No soaking, pools, hot tubs. Do not scrub over incision. 2. Weight-bear as tolerated with walker / cane until follow-up. 3. Ice and elevate when necessary. Do not exceed 20 minutes per hour with ice pack. 4. Utilize compression sleeve until seen at first follow up appointment. 5. Pain meds and anticoagulants per prescription. 6. Pain medication has potential to cause constipation. Increase oral fluid and fiber intake. Contact primary care provider if you have not had a bowel movement within 48 hours after discharge. 7. No anti-inflammatory medication until discussed at first post operative visit, this including Motrin, Aleve, Mobic, Diclofenac. 8. Follow up in office at 2 weeks postop with Yovany Pierson PA-C/Camilo Gomez PA-C 9. Follow up with your primary care doctor 7-10 days after discharge. 10. Contact [facility] with any questions, . Wound care instructions: 1. Okay to remove surgical dressing as of 01/18/2023 2. Okay to shower directly over incision after removal of dressing Discharge Disposition: HOME WITH HOME HEALTH SERVICES
--- NOTE | 2023-01-14 16:04 | P.PN ---
Subjective Progress Note Date: 01/14/23 Consult date: 01/12/23 Medical management Requesting physician: Huey Mcduffie - Chief Complaint Left knee Osteoarthritis status post total arthroplasty - History of Present Illness This is a 52-year-old female status post left total knee arthroplasty secondary to left knee osteoarthritis in a patient with past medical history significant for fibromyalgia, osteoarthritis, Bo-en-Y, morbid obesity, multiple joint surgeries, anxiety, depression, marijuana use and multiple other medical issues. Postop day #1. Has not yet ambulated, complains of pain in a patient with history of chronic pain syndrome. Denies chest pain, palpitations or shortness of breath. 01/13/2023 reports she continues to have significant surgical discomfort, unable to ambulate far, was unable to complete stairs.Denies lightheadedness dizziness or focal deficits. Denies chest pain, palpitations or shortness of breath. Denies cough, congestion. Denies sweats or chills. Maintaining O2 sats in the high 90s on room air. T-max 99.1. 01/14/2023 reports pain controlled improved. Positive bowel movement. Denies chest pain, palpitations or shortness of breath. Denies lightheadedness, dizziness or focal deficits. Afebrile, T-max 99.4, obtain O2 sats in the high 90s on room air. Objective - Vital Signs Vital signs: Vital Signs Temp 98.8 F 01/14/23 07:15 Pulse 90 01/14/23 08:00 Resp 21 01/14/23 08:00 BP 136/91 01/14/23 07:15 Pulse Ox 99 01/14/23 07:15 FiO2 Intake & Output 01/13/23 01/14/23 01/14/23 18:59 06:59 18:59 Other: Voiding Method Toilet Toilet # Voids 4 3 - Exam PHYSICAL EXAM: VITAL SIGNS: As above GENERAL: Alert and oriented 3, Sitting up in bed, NAD, HEENT: Normocephalic. Conjunctivae normal. eyes normal. mmm. NECK: Supple, No JVD. CARDIOVASCULAR: S1, S2 regular. No murmur RESPIRATION: Unlabored, equal air entry, Breath sounds diminished in the bases. ABDOMEN: Soft, obese, nontender . No guarding. +Bowel sounds. LEGS: Left lower extremity dressing clean dry and intact, minimal ecchymosis, minimal edema. No calf tenderness. Positive DP pulse NERVOUS SYSTEM: Cranial N 2-12 grossly normal. No focal deficits. Strength and sensation grossly intact. Skin: Warm and dry, no rash Assessment and Plan Assessment: Osteoarthritis left knee status post total arthroplasty Morbid obesity, BMI 41 Multiple joint surgeries Fibromyalgia Anxiety Depression Marijuana use Plan: Continue on current medication regime ,monitoring and symptomatic treatment. Discharge planning in progress for today as per orthopedic surgery .pain management is a DVT prophylaxis as per primary. Maintain aggressive pulmonary toileting with incentive spirometer reinforced. Follow-up with PCP in one week . The impression and plan of care has been dictated as directed. : I performed a history and examination of this patient, discussed the same with the dictator. I agree with the dictator's note ,documented as a scribe. Any additional findings or plans will be noted.
== END 2023-01-14 13:30 | disposition home health service (06) | DRG 470 ==
LOC: OR 13:22 → 4SSUR 17:19 → OR 18:00 → 4SSUR 01-12 10:56 → OBSVTOIN 01-13 10:08
PROVIDERS: ADMIT Orthopaedic Surgery; ATTEND Orthopaedic Surgery
PROC: 3E0T3BZ Introduction of Anesthetic Agent into Peripheral Nerves and Plexi, Percutaneous Approach (ICD-10-PCS; 2023-01-11)
PROC: 0SRD0J9 Replacement of Left Knee Joint with Synthetic Substitute, Cemented, Open Approach (ICD-10-PCS; principal; 2023-01-11 15:20)
DX: M17.12 Unilateral primary osteoarthritis, left knee (principal); Z68.41 Body mass index [BMI] 40.0-44.9, adult; F32.A Depression, unspecified; E66.01 Morbid (severe) obesity due to excess calories; M79.7 Fibromyalgia; F41.9 Anxiety disorder, unspecified; Z79.899 Other long term (current) drug therapy; Z90.710 Acquired absence of both cervix and uterus; Z96.651 Presence of right artificial knee joint; Z87.19 Personal history of other diseases of the digestive system; Z90.49 Acquired absence of other specified parts of digestive tract
CPT/HCPCS: 64448; 64999

== ENCOUNTER 2024-05-01 13:18 | Day surgery (SDC) | payer MEDICARE ==
[~2024-05-01 13:18] MED LIST changes: -ACETAMINOPHEN TAB 500 MG TAB PO PRN; -DEXAMETHASONE SOD PHOSPHATE 4 MG/ML 1 ML VIAL IV ONE; -MELOXICAM 7.5 MG TAB PO PRN; -ONDANSETRON 4 MG/2 ML VIAL IVP PRN; -TRANEXAMIC 1,000 MG/100ML-NACL 1,000 MG in SALINE 1 100ML.BAG IVPB PRN; -droPERidol 5 MG/2 ML VIAL IVP ONE
[2024-05-01] MEDS: IV FLUID CONTINUATION 1,000 ML IV ONE (13:34)
[2024-05-01 13:49] VITALS: TEMP 97.6
[2024-05-01] MEDS ORDERED: PROPOFOL 10 MG/ML 20 ML VIAL IV ONE (14:36)
--- NOTE | 2024-05-01 14:40 | P.GSHP ---
History of Present Illness H&P Date: 05/01/24 Chief Complaint: Colonoscopy Is a 53-year-old female who presents today for screening colonoscopy. Patient denies any significant GI complaints. Past Medical History Past Medical History: Fibromyalgia, Osteoarthritis (OA) History of Any Multi-Drug Resistant Organisms: None Reported Past Surgical History: Bariatric Surgery, Cholecystectomy, Hysterectomy, Joint Replacement, Orthopedic Surgery Additional Past Surgical History / Comment(s): Right knee surgery X2, right knee replacement, surgery X3 after gallbladder surgery to "fix stuff", including surgery to remove scar tissue over common bile duct and liver/intestinal surgery, Bo En Y, left TKR Past Anesthesia/Blood Transfusion Reactions: No Reported Reaction Smoking Status: Never smoker - Past Family History Mother Family Medical History: No Reported History Medications and Allergies Home Medications Medication Instructions Recorded Confirmed Type ARIPiprazole [Abilify] 20 mg PO QAM 01/06/23 05/01/24 History Benztropine Mesylate [Cogentin] 1 mg PO DAILY 01/06/23 05/01/24 History Biotin [Opyn-Kqsu-Pipae] 10,000 mcg PO DAILY 01/06/23 05/01/24 History Diclofenac Sodium [Voltaren] 75 mg PO BID 01/06/23 05/01/24 History Ergocalciferol [Vitamin D2 (1250 1,250 mcg PO TH 01/06/23 05/01/24 History Mcg = 81015 Iu)] Gabapentin 800 mg PO TID 01/06/23 05/01/24 History Magnesium 250 mg PO DAILY 01/06/23 05/01/24 History Multivitamins, Thera [Multivitamin 1 tab PO DAILY 01/06/23 05/01/24 History (formulary)] Potassium Chloride [K-Tab ER] 20 meq PO DAILY 01/06/23 05/01/24 History QUEtiapine FUMARATE [SEROquel] 75 mg PO HS 01/06/23 05/01/24 History QUEtiapine XR [SEROquel XR] 150 mg PO HS 01/06/23 05/01/24 History Turmeric Root Extract [Turmeric] 1,000 mg PO DAILY 01/06/23 05/01/24 History Vilazodone HCl [Viibryd] 40 mg PO QAM 01/06/23 05/01/24 History busPIRone HCl [Buspar] 5 mg PO HS 01/06/23 05/01/24 History diphenhydrAMINE HCL [Benadryl 75 mg PO HS 01/06/23 05/01/24 History Allergy] traMADol HCL 50 mg PO DAILY PRN 01/06/23 05/01/24 History Aspirin [Adult Low Dose Aspirin EC] 81 mg PO BID #60 tab 01/14/23 05/01/24 Rx Sennosides/Docusate Sodium 2 each PO DAILY PRN #30 tablet 01/14/23 05/01/24 Rx [Senna-S 8.6-50 mg Tablet] oxyCODONE HCL/ACETAMINOPHEN 1 tab PO Q6HR PRN #28 tab 01/14/23 05/01/24 Rx [Percocet 5-325 mg] Allergies Allergy/AdvReac Type Severity Reaction Status Date / Time No Known Allergies Allergy Verified 04/25/24 13:50 Surgical - Exam Vital Signs Temp Pulse Resp BP Pulse Ox 97.6 F 90 16 143/74 97 05/01/24 13:48 05/01/24 13:48 05/01/24 13:48 05/01/24 13:48 05/01/24 13:48 - General well developed, well nourished, no distress - Eyes PERRL - ENT normal pinna - Neck no masses - Respiratory normal expansion - Cardiovascular Rhythm: regular - Abdomen Abdomen: soft, non tender Assessment and Plan Assessment: Will perform screening colonoscopy.
--- NOTE | 2024-05-01 14:57 | P.OP ---
Date of Procedure: 05/01/24 Preoperative Diagnosis: Screening colonoscopy Postoperative Diagnosis: Diverticulosis External hemorrhoids Procedure(s) Performed: Colonoscopy Anesthesia: MAC Surgeon: Ananth Gil Pathology: none sent Condition: stable Disposition: PACU Description of Procedure: The patient was placed on the endoscopy table in the lateral position. She received IV sedation. Digital rectal exams performed which revealed external hemorrhoids. The flexible colonoscope was then placed patient anus and passed throughout t the colon. The colonoscope was advanced into the right colon secondary tortuosity bowel. This point scope withdrawn. The visualized transverse colon appeared normal. In the descending sigmoid colon there was moderate diverticular changes. Scope was back the rectum this appeared normal. Scope withdrawn for the patient. And internal/external hemorrhoids were noted.
[2024-05-01 15:42] VITALS: BP 108/76; PULSE 60; RESP 20
== END 2024-05-01 15:46 | disposition home or self-care (01) ==
LOC: ORWHC2ENDO 13:18
PROVIDERS: ATTEND Surgery
DX: Z12.11 Encounter for screening for malignant neoplasm of colon (principal); K57.30 Diverticulosis of large intestine without perforation or abscess without bleeding; K64.4 Residual hemorrhoidal skin tags; F12.90 Cannabis use, unspecified, uncomplicated; F41.9 Anxiety disorder, unspecified; F32.A Depression, unspecified; M19.90 Unspecified osteoarthritis, unspecified site; M79.7 Fibromyalgia; E66.01 Morbid (severe) obesity due to excess calories; Z68.41 Body mass index [BMI] 40.0-44.9, adult; Z96.651 Presence of right artificial knee joint; Z90.710 Acquired absence of both cervix and uterus; Z88.6 Allergy status to analgesic agent; Z88.5 Allergy status to narcotic agent; Z79.82 Long term (current) use of aspirin; Z79.899 Other long term (current) drug therapy
CPT/HCPCS: J2704; G0121